=== PATIENT | female | born 1955 | race Caucasian/White ===

== ENCOUNTER 2023-06-19 01:19 | Day surgery (SDC) | payer MEDICARE, SELFPAY ==
[2023-06-05 14:03] VITALS: BMI 29.8
[2023-06-19 08:41] VITALS: BP 131/94; PULSE 59; RESP 16; TEMP 36; O2SAT 98; BMI 29.3
[2023-06-19] MEDS: LACTATED RINGERS 1,000 ML 150 ML IV CONT (08:50)
--- NOTE | 2023-06-19 08:57 | P.PNAN_ITS ---
Anes - Initial Pre Proc Eval Procedure: Operation Date: 06/19/23 09:30 Proposed Procedures p Esophagogastroduodenoscopy - Yobany Alford MD Date/Time: 06/19/23 08:57 Surgeon: Yobany Alford MD Pre Op Diagnosis: cough unspecified Patient Data Age: 68 Gender: F Height: 1.7 m Weight: 85.1 kg Last Vital Signs Temp 36.0 C L 06/19/23 08:41 Pulse 59 L 06/19/23 08:41 Resp 16 06/19/23 08:41 BP 131/94 H 06/19/23 08:41 Pulse Ox 98 06/19/23 08:41 O2 Del Method Room Air 06/19/23 08:41 Allergies Allergy/AdvReac Type Severity Reaction Status Date / Time codeine Allergy Severe Vomiting Verified 06/19/23 08:38 Home Medications Medication Instructions Recorded Confirmed Type calcium cit 250 mg-mag 40 mg-D3 1 tablet PO DAILY 04/06/23 06/19/23 History 125 unit-zinc 3.75 mg-endoscopic technician-zahra tablet (Calcium Citrate Plus) cyanocobalamin (vitamin B-12) 1,000 mcg PO .every other day 04/06/23 06/19/23 History 1,000 mcg/15 mL oral liquid famotidine 20 mg tablet 20 mg PO BID 04/06/23 06/19/23 History folic acid 400 mcg tablet 0.4 mg PO EVERY OTHER DAY 04/06/23 06/19/23 History ergocalciferol (vitamin D2) 1,250 1,250 mcg PO MONTHLY 06/05/23 06/19/23 History mcg (50,000 unit) capsule Patient hx anesthesia problems: none Family hx anesthesia problems: none Results Review: All pre-operative results and documents have been reviewed as part of the pre- operative evaluation. [facility] Past Medical History Medical History Breast cancer 2012 Right Breast Colon cancer screening Diverticula, esophagus congenital Surgical History Surgical History History of lumpectomy of right breast 2011 with radiation Social History Social History Smoking status: Never smoker Second hand tobacco smoke exposure: Yes Alcohol intake: never Alcohol use details: social Substance use: never Substance use type: does not use Living arrangements: with family Spiritual care concerns: No Anes - Eval Final PreProcedure Day of Procedure 06/19/23 08:57 Patient weight: overweight Heart: regular rate and rhythm Lungs: clear to auscultation Airway: Mallampati scale class II Neurological: alert and oriented Last oral intake: >/= 8 hours ASA classification: II Emergent: no Anesthetic plan: proceed Anesthesia type and monitoring: general GIVS and standard monitoring Results Review: All pre-operative results and documents have been reviewed as part of the pre- operative evaluation. Informed Consent: The patient's anesthetic plan and its attendant risks and benefits were discussed with the patient/family/POA. Questions were solicited and answers provided to the satisfaction of the patient/family/POA.
--- NOTE | 2023-06-19 09:17 | WPDHPUPDATE1 ---
History and Physical Update Update Date/Time: 06/19/23 09:17 History and Physical has been reviewed, including an updated exam of the patient. There are NO changes in the patient's condition. Risks, benefits, and alternatives have been discussed and questions answered. Patient agrees to proceed with procedure.
[2023-06-19 09:35] VITALS: BP 130/76; PULSE 63; RESP 19; O2SAT 94
[2023-06-19 09:45] VITALS: BP 146/94; PULSE 63; RESP 22; O2SAT 99
[2023-06-19 09:55] VITALS: BP 155/93; PULSE 54; RESP 21; O2SAT 100
== END 2023-06-19 10:08 | disposition home or self-care (01) ==
PROVIDERS: PCP Family Medicine; Visit Provider Internal Medicine Gastroenterology
PROC: 0DJ08ZZ Inspection of Upper Intestinal Tract, Via Natural or Artificial Opening Endoscopic (ICD-10-PCS; CPT 43235; principal; 2023-06-19 09:30)
DX: K21.00 Gastro-esophageal reflux disease with esophagitis, without bleeding (principal); Z85.3 Personal history of malignant neoplasm of breast; Z92.3 Personal history of irradiation
CPT/HCPCS: 43239; 88305; J2704; J7120